=== PATIENT | female | born 2000 | race Caucasian/White ===

== ENCOUNTER 2021-03-10 01:05 | Emergency (ER) | payer MEDICAID ==
[~2021-03-10] VITALS: Ht 167.6 cm; Wt 54.5 kg
[2021-03-10 01:32] VITALS: BP 136/88; TEMP 98.4
[2021-03-10 02:14] LABS: COLLECTION METHOD CLEAN CATCH
[2021-03-10 02:34] LABS: MUCOUS Present /lpf; PH 6 (5-8); URINE APPEARANCE Cloudy; URINE BACTERIA None Seen /hpf; URINE BILIRUBIN Negative (NEGATIVE); URINE BLOOD 3+ (NEGATIVE); URINE CALCIUM OXALATE CRYSTAL Present /hpf; URINE COLOR Yellow; URINE GLUCOSE Negative (NEGATIVE); URINE KETONE Negative (NEGATIVE); URINE LEUKOCYTE ESTERASE 3+ (NEGATIVE); URINE NITRATE Negative (NEGATIVE); URINE PROTEIN(semi-quant) 2+ (NEGATIVE); URINE RBC >50 /hpf
[2021-03-10] MEDS ORDERED: CEFTIN 250250 MG/TAB PO (03:00)
[2021-03-10 03:11] VITALS: PULSE 80
== END 2021-03-10 03:11 | disposition home or self-care (01) ==
LOC: COL.ER 01:05
PROVIDERS: Nurse Practitioner
DX: N39.0 Urinary tract infection, site not specified (principal); Z32.02 Encounter for pregnancy test, result negative